=== PATIENT | male | born 2000 | race African-American/Black ===

== ENCOUNTER 2023-07-29 10:09 | Outpatient (REF) | payer MEDICAID, SELFPAY ==
--- NOTE | ~2023-07-29 | XR_ITS ---
EXAMINATION: XR LUMBOSACRAL SPINE CLINICAL INFORMATION: Low back pain COMPARISON: None available. TECHNIQUE: Three views of the lumbosacral spine. FINDINGS: There 5 nonrib-bearing lumbar-type vertebral bodies. The height of vertebral bodies and disc spaces is well-maintained. There is straightening of the usual lumbar lordosis which can be seen with muscle spasm. There is no spondylolisthesis. There is no significant facet joint disease. The visualized portions of the ascending and transverse colon demonstrate contain a large amount of stool which raises the question of constipation. The descending and sigmoid colon are not imaged on this study. XR/XR lumbar spine 2-3V IMPRESSION: 1. Muscle spasm. 2. The visualized portions of the ascending and transverse colon demonstrate a large amount of stool which raises the question of constipation.
== END 2023-07-29 10:10 | disposition home or self-care (01) ==
LOC: HO.XRAY 10:09
PROVIDERS: Visit Provider Family Medicine Adult Medicine
DX: M54.50 Low back pain, unspecified (principal)
CPT/HCPCS: 72100